=== PATIENT | female | born 1940 | race Caucasian/White ===

== ENCOUNTER → 2018-06-26 | Day surgery (SDC) | payer MEDICARE ==
[2018-06-24 15:21] LABS: BASOPHILS # (AUTO) 0.1 (0.0-0.1); BASOPHILS % 1.3 % (0.0-1.0); EOSINOPHILS # (AUTO) 0.2 (0.0-0.4); EOSINOPHILS % 3.8 % (0.0-6.0); HEMATOCRIT 36.1 % (34.2-44.1); HEMOGLOBIN 11.8 g/dL (12.0-16.0); LYMPHOCYTES # (AUTO) 1.3 (1.0-3.2); LYMPHOCYTES % 21.7 % (18.0-39.1); MEAN CORPUSCULAR HGB CONC 32.7 g/dL (31-35); MEAN CORPUSCULAR VOLUME 100.8 fL (81-99); MONOCYTES # (AUTO) 0.7 (0.2-0.8); NEUTROPHILS # (AUTO) 3.7 (2.1-6.9); NEUTROPHILS % 60.7 % (38.7-80.0); PLATELET COUNT 205 x10e3/uL (140-360); RED BLOOD COUNT 3.58 x10e6/uL (3.6-5.1); RED CELL DISTRIBUTION WIDTH 14.6 % (11.7-14.4)
[~2018-06-26] MED LIST: ALENDRONATE SOD70 MG; ALLOPURINOL300 MG PO; AMIODARONE HCL200 MG; DIGOXIN PO; FENTANYL CITRATE/PF 100MCG/2 ML INJ ONE; FUROSEMIDE40 MG PO; LIDOCAINE HCL 2% LOCAL INJ 5 ML SDV VIAL INJ ONE; LISINOPRIL; METOPROLOL; POTASSIUM CHLO20 ME1; PRADAXA150 MG; PRAVASTATIN SOD80 MG; PROPOFOL IV EMULSION 10 MG/ML 50 ML VIAL ONE; TRAZODONE HCL50 MG PO
--- OUTSIDE RECORDS SUMMARY | 2018-06-26 05:49 | XMS REPORT ---
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 Allergies, Adverse Reactions, Alerts This patient has no known allergies or adverse reactions. Medications This patient has no known medications. Results Test Description Test Time Test Comments Text Results Atomic Results Result Comments FOOT RIGHT COMPLETE 2018-04-24 11:44:00 [facility] [address] [address] Patient Name: JOLENE SWARTZ MR #: [id number] : 1940 Age/Sex: 78/F Req #: [id number] Adm Physician: Ordered by: LESLI BROWN MD Report #: [id number] Location: ER Room/Bed: Procedure: [id number] DX/FOOT RIGHT COMPLETE Exam Date: 04/24/18 Exam Time: 1050 REPORT STATUS: Signed Radiographs of the right foot - 3 views HISTORY: Trauma COMPARISON: None available. FINDINGS: Bones: No acute displaced fracture. Osseous alignment is within normal limits. The Lis Franc alignment is maintained. Joints: Scattered degenerative changes in the interphalangeal joints. No osseous erosion. Soft tissues: The soft tissues appear unremarkable. IMPRESSION: No acute osseous abnormality. Scattered mild degenerative changes. Signed by: Dr. Adam Santos MD on 04/24/2018 11:49 AM Dictated By: ADAM SANTOS MD [id number] Transcribed By: KIMMY on 04/24/18 1149 COPY TO: LESLI BROWN MD
[2018-06-26 08:20] VITALS: BP 119/58
== END | disposition home or self-care (01) ==
LOC: OR 05:47
PROVIDERS: ATTEND Internal Medicine Gastroenterology
DX: R19.5 Other fecal abnormalities (principal); K64.8 Other hemorrhoids; I48.91 Unspecified atrial fibrillation; Z79.02 Long term (current) use of antithrombotics/antiplatelets; Z95.810 Presence of automatic (implantable) cardiac defibrillator; Z87.891 Personal history of nicotine dependence
CPT/HCPCS: 36415; 45378; 85025; 93005; J2001

== ENCOUNTER → 2019-07-21 | Outpatient (CLI) | payer MEDICARE ==
[~2019-07-21] MED LIST changes: -FENTANYL CITRATE/PF 100MCG/2 ML INJ ONE; -LIDOCAINE HCL 2% LOCAL INJ 5 ML SDV VIAL INJ ONE; -PROPOFOL IV EMULSION 10 MG/ML 50 ML VIAL ONE
--- NOTE | 2019-07-21 17:02 | Diagnostic Imaging Report ---
EXAM: CHEST 2 VIEWS DATE: 07/21/2019 4:21 PM INDICATION: Cough COMPARISON: None IMPRESSION: Left-sided AICD identified with subclavian coursing transvenous leads extending to the heart. The trachea is midline. The lungs appear hyperinflated which can be seen in the setting of COPD. There are mild bibasilar opacities suggestive of atelectasis/scarring. There is no evidence for large focal consolidation, pneumothorax, or significant pleural effusion. The cardiomediastinal silhouette and pulmonary vasculature are within normal limits. There are degenerative changes of the visualized spine. No acute osseous abnormality is identified. Signed by: Dr. Francisco Khan MD on 07/21/2019 4:59 PM
== END ==
LOC: RAD 16:00
PROVIDERS: ATTEND Family Medicine
DX: R05 Cough (principal)
CPT/HCPCS: 71046

== ENCOUNTER → 2020-08-17 | Day surgery (SDC) | payer MEDICARE ==
[2020-08-15 09:56] LABS: BASOPHILS # (AUTO) 0.1 (0.0-0.1); BASOPHILS % 1.4 % (0.0-1.0); EOSINOPHILS # (AUTO) 0.1 (0.0-0.4); EOSINOPHILS % 2.1 % (0.0-6.0); HEMATOCRIT 36.8 % (34.2-44.1); HEMOGLOBIN 11.8 g/dL (12.0-16.0); LYMPHOCYTES # (AUTO) 1.2 (1.0-3.2); LYMPHOCYTES % 21.3 % (18.0-39.1); MEAN CORPUSCULAR HGB CONC 32.1 g/dL (31-35); MEAN CORPUSCULAR VOLUME 96.6 fL (81-99); MONOCYTES # (AUTO) 0.6 (0.2-0.8); MONOCYTES % 10.2 % (4.4-11.3); NEUTROPHILS # (AUTO) 3.7 (2.1-6.9); NEUTROPHILS % 64.7 % (38.7-80.0); PLATELET COUNT 232 x10e3/uL (140-360); RED BLOOD COUNT 3.81 x10e6/uL (3.6-5.1); RED CELL DISTRIBUTION WIDTH 14.6 % (11.7-14.4)
[2020-08-15 10:23] LABS: INR 1.13; PROTHROMBIN TIME 15.1 seconds (11.9-14.5)
[2020-08-15 10:31] LABS: ANION GAP 12.9 mmol/L (8-16); BLOOD UREA NITROGEN 15 mg/dL (7-26); BUN/CREATININE RATIO 18 (6-25); CALCIUM 8.8 mg/dL (8.4-10.2); CARBON DIOXIDE 28 mmol/L (22-29); CHLORIDE 103 mmol/L (98-107); CREATININE, SERUM 0.84 mg/dL (0.57-1.11); EST GLOMERULAR FILTRATION RATE > 60 ML/MIN (60-); GLUCOSE 115 mg/dL (74-118); SODIUM 141 mmol/L (136-145)
[2020-08-15 10:39] LABS: POTASSIUM 2.9 mmol/L (3.5-5.1)
[~2020-08-17] VITALS: Ht 165.1 cm; Wt 62.1 kg
[2020-08-17] VITALS (12 sets, daily range): BP systolic 96–156; BP diastolic 48–98
[~2020-08-17] MED LIST changes: -ALENDRONATE SOD70 MG; +ALENDRONATE SOD70 MG PO; -AMIODARONE HCL200 MG; +AMIODARONE HCL200 MG PO; +ATORVASTATIN CA80 MG PO; +CEFAZOLIN SOD 1 GM VIAL ONE; +FENTANYL CITRATE/PF 100MCG/2 ML INJ ONE; +GENTAMICIN SULFATE 40 MG/ML 2 ML VIAL ONE; +LIDOCAINE HCL 2% LOCAL 20 ML VIAL ONE; +LISINOPRIL5 MG PO; +METOPROLOL SUCC50 MG PO; +MIDAZOLAM HCL 2 MG/2 ML VIAL ONE; -PRADAXA150 MG; +PRADAXA150 MG PO; +SODIUM CHLORIDE 0.9% 1000ML 2,000 ML ONE; +SODIUM CHLORIDE 0.9% 500ML 500 ML ONE; +SODIUM CHLORIDE 0.9% 50ML 50 ML ONE; +TRAZODONE HCL100 MG PO; +VANCOMYCIN 1GM/NS 250 ML 250 ML ONE
== END | disposition home or self-care (01) ==
LOC: CATH LAB 06:45
PROVIDERS: ATTEND Internal Medicine
DX: T82.897A Other specified complication of cardiac prosthetic devices, implants and grafts, initial encounter (principal); I42.9 Cardiomyopathy, unspecified; I11.0 Hypertensive heart disease with heart failure; I50.22 Chronic systolic (congestive) heart failure; I48.91 Unspecified atrial fibrillation; E78.5 Hyperlipidemia, unspecified; J45.909 Unspecified asthma, uncomplicated; Y83.8 Other surgical procedures as the cause of abnormal reaction of the patient, or of later complication, without mention of misadventure at the time of the procedure; Z01.812 Encounter for preprocedural laboratory examination; Z20.828 Contact with and (suspected) exposure to other viral communicable diseases; Z79.02 Long term (current) use of antithrombotics/antiplatelets
CPT/HCPCS: 33216; 36415; 71045; 80048; 85025; 85610; C1769; C1777; J0690; J1580; J2001; J2250; J3010; J3370; J7030; J7040; U0002; 33249; 99152; 99153

== ENCOUNTER → 2021-08-02 | Outpatient (CLI) | payer MEDICARE ==
[~2021-08-02] MED LIST changes: -CEFAZOLIN SOD 1 GM VIAL ONE; -FENTANYL CITRATE/PF 100MCG/2 ML INJ ONE; -GENTAMICIN SULFATE 40 MG/ML 2 ML VIAL ONE; -LIDOCAINE HCL 2% LOCAL 20 ML VIAL ONE; -MIDAZOLAM HCL 2 MG/2 ML VIAL ONE; -SODIUM CHLORIDE 0.9% 1000ML 2,000 ML ONE; -SODIUM CHLORIDE 0.9% 500ML 500 ML ONE; -SODIUM CHLORIDE 0.9% 50ML 50 ML ONE; -VANCOMYCIN 1GM/NS 250 ML 250 ML ONE
== END ==
LOC: RAD 09:18
PROVIDERS: ATTEND Family Medicine
DX: S22.31XA Fracture of one rib, right side, initial encounter for closed fracture (principal)
CPT/HCPCS: 71101

== ENCOUNTER 2022-03-12 09:51 | Emergency (ER) | payer MEDICARE, OTHER ==
[~2022-03-12] VITALS: Ht 165.1 cm; Wt 62.1 kg
== END 2022-03-12 11:52 | disposition home or self-care (01) ==
LOC: ER 10:00
DX: M25.561 Pain in right knee (principal); S80.01XA Contusion of right knee, initial encounter; W01.198A Fall on same level from slipping, tripping and stumbling with subsequent striking against other object, initial encounter; Y92.091 Bathroom in other non-institutional residence as the place of occurrence of the external cause; E78.5 Hyperlipidemia, unspecified; I50.9 Heart failure, unspecified; I48.91 Unspecified atrial fibrillation; Z95.810 Presence of automatic (implantable) cardiac defibrillator
CPT/HCPCS: 99283